=== PATIENT | female | born 1975 | race Hispanic/Latino ===

== ENCOUNTER 2020-08-19 18:07 | Emergency (ER) | payer OTHER, MEDICAID, SELFPAY ==
[2020-08-19] VITALS (14 sets, daily range): BP systolic 121–155; BP diastolic 77–90; PULSE 60–95; RESP 14–25; TEMP 36.8; O2SAT 98–100; BMI 27.4
--- NOTE | 2020-08-19 18:57 | ED.ABDPAIN ---
HPI - Abdominal Pain General Chief Complaint: Abdominal Pain Stated Complaint: Stomach pain Time Seen by Provider: 08/19/20 18:26 Source: patient Mode of arrival: Family Vehicle Limitations: no limitations History of Present Illness HPI narrative: Patient is a 45-year-old female within no known medical history presenting with right upper quadrant pain ongoing for 3 weeks but has progressively gotten worse today. She says it is feels like a burning sensation going around to her back. She has felt nauseous at times she has thrown up a couple of times but not today. She said the pain was so bad today that she was sweating. She says that she has had fever of 102 but that was last week and does not report any other fever. MD complaint: abdominal pain Onset (ago): week(s) Pain Consistency: constant Location: RUQ Quality: stabbing Migration to: no migration Related Data Previous Rx's Medication Instructions Recorded ciprofloxacin HCl [Cipro] 500 mg PO BID 14 Days #0 tab 05/25/16 ondansetron [Zofran ODT] 4 mg SUBLINGUAL Q6HP PRN #20 odt 05/25/16 omeprazole 20 mg PO DAILY #14 tab 08/19/20 Allergies Allergy/AdvReac Type Severity Reaction Status Date / Time No Known Drug Allergies Allergy Verified 08/19/20 18:45 Review of Systems Review of Systems Narrative: GENERAL: Denies chills, fatigue, malaise, fever, sweats, travel HEENT: Denies sinus pain, ear pain, sore throat, difficulty swallowing, neck pain RESPIRATORY: Denies dyspnea, cough, wheezing, hemoptysis, sputum. CARDIOVASCULAR: Denies chest pain, palpitations, orthopnea, edema GASTROINTESTINAL see HPI : Denies dysuria, frequency, incontinence, hematuria, urinary retention, flank pain. MUSCULOSKELETAL: Denies weakness, joint pain, or bony pain SKIN: No rash, no erythema, no pruritus NEUROLOGIC: Denies weakness, dizziness, headache, numbness, change in speech, confusion PSYCHIATRIC: No concerning psychosocial issues. 12 point review of systems is negative except for those stated above and HPI Patient History Medical History Patient denies medical problems Social History Smoking Status: Current every day smoker Smoking Status: Current every day smoker tobacco type: cigarettes alcohol intake frequency: 0-2 drinks per day Substance Use Type: heroin Exam Initial Vital Signs Initial Vital Signs: Vital Signs Temperature 98.2 F 08/19/20 18:24 Pulse Rate 95 H 08/19/20 18:24 Respiratory Rate 18 08/19/20 18:24 Blood Pressure 121/82 08/19/20 18:24 Pulse Oximetry 99 08/19/20 18:24 GENERAL: Well-appearing, well-nourished and in no acute distress. HEENT: Head atraumatic,EOMI, pupils reactive, face symmetric, moist mucous membranes CARDIOVASCULAR: Regular rate and rhythm without murmurs, rubs or gallops. RESPIRATORY: Breath sounds equal bilaterally, no wheezes rales or rhonchi. ABDOMEN: Soft, right upper quadrant pain positive Rutledge sign no guarding or rebound EXTREMITIES: Normal range of motion, no clubbing or edema. Neurovascularly intact NEUROLOGICAL: Alert and oriented x4.Normal gait and speech. SKIN: Warm, dry, no laceration, no petechiae, no rashes or lesions. Course Orders Ordered: ED Orders 08/19/20 18:20 Urine Microscopic Stat 08/19/20 18:23 EKG-12 Lead Stat 08/19/20 19:07 US abdomen limited Stat 08/19/20 20:14 Complete Blood Count AUTO DIFF Stat Comprehensive Metabolic Panel Stat Lipase Stat 08/19/20 20:33 CT abdomen pelvis w con Stat 08/19/20 20:38 Acetaminophen Stat Partial Thromboplastin Time Stat Prothrombin Time INR Stat 08/19/20 22:20 Hepatitis Acute Panel Stat Discontinued Medications Al Hydrox/Mg Hydrox/Simethicone 20 ml/ Lidocaine HCl 15 ml 0 ml PO NOW ONE Stop: 08/19/20 22:51 Last Admin: 08/19/20 22:53 Dose: 35 ml Documented by: RMARTIN Sodium Chloride (Normal Saline 0.9%) 1,000 mls @ 1,000 mls/hr IV BOLUS ONE Stop: 08/19/20 22:55 Last Infusion: 08/19/20 23:06 Dose: 0 mls/hr Documented by: Admin: 08/19/20 21:57 Dose: 1,000 mls/hr Documented by: RMARTIN Ketorolac Tromethamine (Ketorolac 60 Mg/2 Ml Vial) 30 mg IM NOW ONE Stop: 08/19/20 19:08 Last Admin: 08/19/20 19:28 Dose: 30 mg Documented by: JAIMIE Vital Signs Vital signs: Vital Signs - 8 hr 08/19/20 18:24 08/19/20 19:03 08/19/20 19:30 Temperature 98.2 F Pulse Rate 95 H 76 70 Respiratory Rate 18 25 H 23 Blood Pressure 121/82 Pulse Oximetry 99 98 98 08/19/20 19:47 08/19/20 19:59 08/19/20 20:00 Temperature Pulse Rate 67 67 Respiratory Rate 18 20 Blood Pressure 127/85 135/77 Pulse Oximetry 100 100 08/19/20 20:30 08/19/20 21:00 08/19/20 21:30 Temperature Pulse Rate 62 65 61 Respiratory Rate 16 17 15 Blood Pressure Pulse Oximetry 100 100 99 08/19/20 21:39 08/19/20 21:40 08/19/20 22:00 Temperature Pulse Rate 62 62 60 Respiratory Rate 14 15 15 Blood Pressure 130/85 Pulse Oximetry 98 98 98 08/19/20 22:30 08/19/20 22:34 Temperature Pulse Rate 62 Respiratory Rate 17 Blood Pressure 155/90 H Pulse Oximetry 100 100 MDM - Abdominal Pain Lab Data Attestation: I reviewed the patient's lab results. Result diagrams: 08/19/20 20:14 08/19/20 20:14 Labs: Lab Results 08/19/20 08/19/20 08/19/20 Range/Units 18:20 20:14 20:14 WBC 7.6 (4.5-11.0) X10^3/uL RBC 4.74 (4.0-5.2) X10^6/uL Hgb 14.7 (12.0-16.0) g/dL Hct 43.6 (36-46) % MCV 92.0 (80-100) fL MCH 30.9 (26-34) PG MCHC 33.7 (30-36) % RDW 14.3 (11.6-14.8) % Plt Count 97 L (150-400) X10^3/uL Neut % (Auto) 41.9 L (50-75) % Lymph % (Auto) 48.6 H (25-40) % [place] % (Auto) 7.3 (3-14) % Eos % (Auto) 1.7 L (2-4) % Baso % (Auto) 0.5 (0-2) % Neut # (Auto) 3200 (5611-7987) /uL Lymph # (Auto) 3700 (5865-2282) /uL [place] # (Auto) 600 (0-900) /uL Eos # (Auto) 100 (0-450) /uL Baso # (Auto) 0 (0-100) /uL Platelet Estimate Decreased on smear Plt Morphology Comment * RBC Morphology See below Anisocytosis 1+ H PT (10.1-12.7) SECONDS INR (0.9-1.3) APTT (26.4-36.2) SECONDS Sodium 138 (137-145) mmol/L Potassium 3.8 (3.4-5.1) mmol/L Chloride 104 (98-107) mmol/L Carbon Dioxide 28 (22-32) mmol/L BUN 16 (7-17) mg/dL Creatinine 0.65 (0.52-1.04) mg/dL Estimated GFR > 60.0 (>60) mL/min BUN/Creatinine Ratio 24.6 H (6-22) Glucose 103 H (70-100) mg/dL Calcium 8.9 (8.4-10.2) mg/dL Total Bilirubin 0.6 (0.2-1.3) mg/dL AST 39 H (14-36) IU/L ALT 255 H (<35) IU/L Alkaline Phosphatase 157 H (38-126) U/L Total Protein 7.8 (6.3-8.2) g/dL Albumin 3.8 (3.5-5.0) g/dL Globulin 4.0 (1.7-4.1) g/dL Albumin/Globulin Ratio 1.0 (1.0-2.8) Lipase 144 (23-300) U/L Urine RBC 0-1/hpf (0-5/HPF) Urine WBC 0-1/hpf (0-5/HPF) Ur Squamous Epith Cells 0-1 /hpf (0-5/HPF) Urine Bacteria Few (2-10) H (None) Ur Culture Indicated? Cult not indicated Acetaminophen (10-30) ug/mL 08/19/20 08/19/20 Range/Units 20:38 20:38 WBC (4.5-11.0) X10^3/uL RBC (4.0-5.2) X10^6/uL Hgb (12.0-16.0) g/dL Hct (36-46) % MCV (80-100) fL MCH (26-34) PG MCHC (30-36) % RDW (11.6-14.8) % Plt Count (150-400) X10^3/uL Neut % (Auto) (50-75) % Lymph % (Auto) (25-40) % [place] % (Auto) (3-14) % Eos % (Auto) (2-4) % Baso % (Auto) (0-2) % Neut # (Auto) (9329-4828) /uL Lymph # (Auto) (1909-6652) /uL [place] # (Auto) (0-900) /uL Eos # (Auto) (0-450) /uL Baso # (Auto) (0-100) /uL Platelet Estimate Plt Morphology Comment RBC Morphology Anisocytosis PT 10.8 (10.1-12.7) SECONDS INR 0.9 (0.9-1.3) APTT 38 H (26.4-36.2) SECONDS Sodium (137-145) mmol/L Potassium (3.4-5.1) mmol/L Chloride (98-107) mmol/L Carbon Dioxide (22-32) mmol/L BUN (7-17) mg/dL Creatinine (0.52-1.04) mg/dL Estimated GFR (>60) mL/min BUN/Creatinine Ratio (6-22) Glucose (70-100) mg/dL Calcium (8.4-10.2) mg/dL Total Bilirubin (0.2-1.3) mg/dL AST (14-36) IU/L ALT (<35) IU/L Alkaline Phosphatase (38-126) U/L Total Protein (6.3-8.2) g/dL Albumin (3.5-5.0) g/dL Globulin (1.7-4.1) g/dL Albumin/Globulin Ratio (1.0-2.8) Lipase (23-300) U/L Urine RBC (0-5/HPF) Urine WBC (0-5/HPF) Ur Squamous Epith Cells (0-5/HPF) Urine Bacteria (None) Ur Culture Indicated? Acetaminophen < 10 L (10-30) ug/mL Point of care testing: Point of Care Testing Test Results Negative Urine Dip Bedside Urine Glucose Negative Bedside Urine Bilirubin + 1 Bedside Urine Ketone +/- 5 Urine Specific [place] 1.030 Bedside Urine Occult Blood + Bedside Urine pH 5.5 Bedside Urine Protein ++ 100 Bedside Urine Urobilinogen - Negative Bedside Urine Nitrite - Negative Bedside Urine Leukocytes - Negative Esterase Imaging Data CT scan - abdomen/pelvis: My Impression: PROCEDURE: US ABDOMEN LIMITED INDICATIONS: RUQ PAIN TECHNIQUE: Real-time scanning was performed of the abdominal and retroperitoneal organs, with image documentation. COMPARISON: None. FINDINGS: Liver is normal in size and homogeneous in echotexture. Intrahepatic bile ducts are non-dilated. Gallbladder is surgically absent Extrahepatic bile duct caliber measures 6 mm mm. Visualized portions of the pancreas are sonographically normal. No free abdominal fluid. IMPRESSION: 1. No ultrasound findings to explain right upper quadrant pain. 2. Cholecystectomy. Dictated by: Kayla Nicholson M.D. on 08/19/2020 at 19:59 Radiologist's Impression: PROCEDURE: CT ABDOMEN PELVIS W CON INDICATIONS: right sided pain TECHNIQUE: After the administration of intravenous contrast, 5 mm thick sections acquired from the diaphragm to the symphysis. 5 mm coronal and sagittal reformats were acquired. For radiation dose reduction, the following was used: automated exposure control, adjustment of mA and/or kV according to patient size. COMPARISON: [facility], US, US ABDOMEN LIMITED, 08/19/2020, 19:33. [facility], CT, ABDOMEN/PELVIS WITH CONTRAST, 09/13/2015, 9:56. [facility], CT, CT KUB, 01/22/2016, 18:30. [facility], CT, CT KUB, 12/22/2015, 23:55. [facility], CT, KIDNEY/ URETER/BLADDER, 05/24/2016, 23:45. FINDINGS: Image quality: Excellent. ABDOMEN: Lung bases: Lung bases are clear. Heart size is normal. Solid organs: Liver is mildly enlarged and demonstrates normal enhancement. Gallbladder is surgically absent. Mildly prominent intrahepatic biliary duct and common bile duct, likely secondary to cholecystectomy.. Pancreas enhances normally. Spleen is normal in size and enhancement. No adrenal nodules. Kidneys demonstrate normal size and enhancement, without hydronephrosis. There are renal cortical scars in the left superior pole. A 1 cm cyst is seen in the upper pole of the right kidney. Peritoneum and bowel: Bowel loops demonstrate normal wall thickness and caliber. Appendix is not well seen. No CT findings to suggest acute appendicitis. There is a cabkjbxs-mi-bsjmu amount of stool in colon. No free fluid or air. Nodes and vessels: No retroperitoneal or mesenteric adenopathy by size criteria. Aorta and inferior vena cava are normal in size. Miscellaneous: No ventral hernias. PELVIS: Genitourinary: Bladder wall thickness is normal. Uterus is normal. There is an IUD. There is a 3.7 x 2.7 cm cyst in the left ovary. A small 9 mm fat containing nodule in the right ovary is consistent with an ovarian dermoid. No pathological free-fluid in pelvis. Miscellaneous: No inguinal hernias or adenopathy. Bones: No suspicious bony lesions. No vertebral body compression fractures. IMPRESSION: 1. A definitive cause for right upper quadrant pain is not identified. 2. Cholecystectomy. Prominent biliary duct is likely secondary to cholecystectomy. 3. No renal stone or hydronephrosis. There are renal cortical scars in the superior pole of the left kidney. A 1 cm cyst is noted in the upper pole of the right kidney. 4. Mild hepatomegaly. 5. Onlfttqn-nk-ewfxd amount of stool in colon. 6. A 3.7 x 2.7 cm left ovarian cyst. 7. Suspect a small right ovarian dermoid measuring 9 mm. Dictated by: Kayla Nicholson M.D. on 08/19/2020 at 22:00 MDM Narrative Medical decision making narrative: Patient is found to have abnormal liver enzymes with out cholecystitis in fact she has had a cholecystectomy. She also has a normal bilirubin. Upon questioning she said that she has been taking Tylenol and some ibuprofen around the clock. She sounds like she is taking 1500 mg of Tylenol at a time. Today she took a 1500 mg twice she cannot tell me the last time that she took it. She also apparently recently relapsed with heroin use. CT is negative for any source of right upper quadrant pain. Adding a Tylenol level and a hepatitis panel Upon further questioning patient states that her pain started 3 weeks ago it was so bad that she relapsed using heroin. She used about 5 times to help her with the pain. She previously quit and was sober for while. She states that she is using clean needles and no known history of hepatitis. Tylenol level is negative. The patient is given a GI cocktail which helps. This may also be an ulcer. I sent her prescription for omeprazole. At this time I discussed with her she needs to have her liver enzymes rechecked and followed. But no known cause at this time Discharge Plan Departure Patient Disposition: Home Clinical Impression: Abdominal pain, Elevated liver enzymes Instructions: DI for Abdominal Pain-Adult Activity Restrictions/Additional Instructions: *You have been diagnosed with abdominal pain and elevated liver enzyme *What to do: At this time it is unclear what is causing your pain. Your liver enzymes are noted to be slightly elevated please have this rechecked. This will not be back today. If something is abnormal we will call you this week *Continue to take medications as directed Tylenol 1000 mg every 8 hours if needed for myuv-wo-wvucbtov pain. Do not exceed more than 4000 mg in 1 day Ibuprofen 800 mg every 8 hours if needed for ozuu-ml-gkhysihc pain *Follow up with your primary care provider in 2-3 days, please call 1st thing tomorrow to schedule follow-up appointment *Return to ER if you should have increasing pain, inability Tolerate fluids, or any new, worsening or concerning symptoms Prescriptions: New omeprazole 20 mg tablet,delayed release (DR/EC) 20 mg PO DAILY Qty: 14 RF: 0 No Action ciprofloxacin HCl [Cipro] 500 MG tablet 500 mg PO BID 14 Days Qty: 0 RF: 0 ondansetron [Zofran ODT] 4 MG tablet,disintegrating 4 mg Sublingual Q6HP PRNQty: 20 RF: 0
--- NOTE | 2020-08-19 19:07 | DI.US.S_ITS ---
PROCEDURE: US ABDOMEN LIMITED INDICATIONS: RUQ PAIN TECHNIQUE: Real-time scanning was performed of the abdominal and retroperitoneal organs, with image documentation. COMPARISON: None. FINDINGS: Liver is normal in size and homogeneous in echotexture. Intrahepatic bile ducts are non-dilated. Gallbladder is surgically absent Extrahepatic bile duct caliber measures 6 mm mm. Visualized portions of the pancreas are sonographically normal. No free abdominal fluid. IMPRESSION: 1. No ultrasound findings to explain right upper quadrant pain. 2. Cholecystectomy. Dictated by: Kayla Nicholson M.D. on 08/19/2020 at 19:59 Approved by: Kayla Nicholson M.D. on 08/19/2020 at 20:00
[2020-08-19 19:21] LABS: Bacteria Urine Few (2-10); Culture Indicated Urine Cult Not Indicated; RBC Urine 0-1/HPF (0-5/HPF); Squamous Epithelial Cell Urine 0-1 /HPF (0-5/HPF); WBC Urine 0-1/HPF (0-5/HPF)
[2020-08-19] MEDS: KETOROLAC 60 MG/2 ML VIAL 30 MG IM (19:28)
--- NOTE | 2020-08-19 20:33 | DI.CT.S_ITS ---
PROCEDURE: CT ABDOMEN PELVIS W CON INDICATIONS: right sided pain TECHNIQUE: After the administration of intravenous contrast, 5 mm thick sections acquired from the diaphragm to the symphysis. 5 mm coronal and sagittal reformats were acquired. For radiation dose reduction, the following was used: automated exposure control, adjustment of mA and/or kV according to patient size. COMPARISON: [facility], US, US ABDOMEN LIMITED, 08/19/2020, 19:33. [facility], CT, ABDOMEN/PELVIS WITH CONTRAST, 09/13/2015, 9:56. [facility], CT, CT KUB, 01/22/2016, 18:30. [facility], CT, CT KUB, 12/22/2015, 23:55. [facility], CT, KIDNEY/ URETER/BLADDER, 05/24/2016, 23:45. FINDINGS: Image quality: Excellent. ABDOMEN: Lung bases: Lung bases are clear. Heart size is normal. Solid organs: Liver is mildly enlarged and demonstrates normal enhancement. Gallbladder is surgically absent. Mildly prominent intrahepatic biliary duct and common bile duct, likely secondary to cholecystectomy.. Pancreas enhances normally. Spleen is normal in size and enhancement. No adrenal nodules. Kidneys demonstrate normal size and enhancement, without hydronephrosis. There are renal cortical scars in the left superior pole. A 1 cm cyst is seen in the upper pole of the right kidney. Peritoneum and bowel: Bowel loops demonstrate normal wall thickness and caliber. Appendix is not well seen. No CT findings to suggest acute appendicitis. There is a rmsreogr-pi-opvmm amount of stool in colon. No free fluid or air. Nodes and vessels: No retroperitoneal or mesenteric adenopathy by size criteria. Aorta and inferior vena cava are normal in size. Miscellaneous: No ventral hernias. PELVIS: Genitourinary: Bladder wall thickness is normal. Uterus is normal. There is an IUD. There is a 3.7 x 2.7 cm cyst in the left ovary. A small 9 mm fat containing nodule in the right ovary is consistent with an ovarian dermoid. No pathological free-fluid in pelvis. Miscellaneous: No inguinal hernias or adenopathy. Bones: No suspicious bony lesions. No vertebral body compression fractures. IMPRESSION: 1. A definitive cause for right upper quadrant pain is not identified. 2. Cholecystectomy. Prominent biliary duct is likely secondary to cholecystectomy. 3. No renal stone or hydronephrosis. There are renal cortical scars in the superior pole of the left kidney. A 1 cm cyst is noted in the upper pole of the right kidney. 4. Mild hepatomegaly. 5. Asfkecym-bg-tdcwi amount of stool in colon. 6. A 3.7 x 2.7 cm left ovarian cyst. 7. Suspect a small right ovarian dermoid measuring 9 mm. Dictated by: Kayla Nicholson M.D. on 08/19/2020 at 22:00 Approved by: Kayla Nicholson M.D. on 08/19/2020 at 22:10
[2020-08-19 20:36] LABS: Alanine Aminotransferase 255 IU/L (<35); Albumin 3.8 g/dL (3.5-5.0); Alkaline Phosphatase 157 U/L (38-126); Aspartate Aminotransferase 39 IU/L (14-36); BUN Creatinine Ratio 24.6 (6-22); Bilirubin Total 0.6 mg/dL (0.2-1.3); Blood Urea Nitrogen 16 mg/dL (7-17); Calcium 8.9 mg/dL (8.4-10.2); Carbon Dioxide 28 mmol/L (22-32); Chloride 104 mmol/L (98-107); Estimated Glomerular Filt Rate > 60.0 mL/min (>60); Glucose 103 mg/dL (70-100); HEMOLYSIS 19 (0-50); Lipase 144 U/L (23-300); Potassium 3.8 mmol/L (3.4-5.1); Sodium 138 mmol/L (137-145); Total Protein 7.8 g/dL (6.3-8.2)
[2020-08-19 20:41] LABS: Basophils Absolute Auto 0 /uL (0-100); Basophils Percent Auto 0.5 % (0-2); Eosinophils Absolute Auto 100 /uL (0-450); Eosinophils Percent Auto 1.7 % (2-4); Hematocrit 43.6 % (36-46); Hemoglobin 14.7 g/dL (12.0-16.0); Lymphocytes Absolute Auto 3700 /uL (1100-4500); Lymphocytes Percent Auto 48.6 % (25-40); Mean Corpuscular HGB Conc 33.7 % (30-36); Mean Corpuscular Hemoglobin 30.9 PG (26-34); Monocytes Absolute Auto 600 /uL (0-900); Monocytes Percent Auto 7.3 % (3-14); Neutrophils Absolute Auto 3200 /uL (1500-7000); Neutrophils Percent Auto 41.9 % (50-75); Platelet Count 97 X10^3/uL (150-400); Red Blood Cell Count 4.74 X10^6/uL (4.0-5.2); Red Cell Distribution Width 14.3 % (11.6-14.8); White Blood Cell Count 7.6 X10^3/uL (4.5-11.0)
[2020-08-19 20:51] LABS: INR 0.9 (0.9-1.3); Prothrombin Time 10.8 SECONDS (10.1-12.7)
[2020-08-19 20:54] LABS: PTT Partial Thromboplastin Tim 38 SECONDS (26.4-36.2)
[2020-08-19 21:11] LABS: Add Manual Diff / Slide Review SLIDE REVIEW
[2020-08-19 21:12] LABS: Anisocytosis 1+; Platelet Estimate Decreased on smear
[2020-08-19] MEDS: SODIUM CHLORIDE 0.9% 1,000 ML 1000 ML IV (21:57)
[2020-08-19 22:44] LABS: Acetaminophen < 10 ug/mL (10-30)
[2020-08-19] MEDS: MAG HYDROX/ALUMINUM/SIMETH SUS 20 ML, LIDOCAINE VISCOUS 2% 15 ML PO (22:53)
[2020-08-28 13:51] LABS: HBsAg Screen NEGATIVE; Hepatitis B Core Antibody IgM NEGATIVE
[2020-08-28 13:52] LABS: Hepatitis A Antibody IgM NEGATIVE
[2020-08-28 13:57] LABS: Hepatitis C Antibody >11.0
== END 2020-08-19 23:07 | disposition home or self-care (01) ==
PROVIDERS: Emergency Provider Emergency Medicine
DX: R10.11 Right upper quadrant pain (principal); R74.8 Abnormal levels of other serum enzymes; M54.9 Dorsalgia, unspecified; R11.0 Nausea; R50.9 Fever, unspecified
CPT/HCPCS: 36415; 74177; 76705; 80053; 80074; 80329; 81003; 81015; 81025; 83690; 85025; 85610; 85730; 87522; 93005; 96360; 96372; 99284; G0480; J1885